=== PATIENT | female | born 1970 | race Two or more races ===

== ENCOUNTER → 2016-10-11 | Emergency (ER) | payer SELFPAY ==
[~2016-10-11] VITALS: Ht 167.6 cm; Wt 72.6 kg
--- NOTE | 2016-10-11 21:31 | Emergency Room Report ---
History of Present Illness General Chief Complaint: Syncope Source: Patient Present Illness HPI This patient presents with chief complaint of syncope. According to EMS blood pressure was low. By time she got here, she fell better after IV fluid bolus. She did not want to be seen and want to leave AMA. She was triaged and was not seen by me. Patient is competent to do so. Her daughter was with her. Allergies: Coded Allergies: No Known Allergies (Unverified , 10/11/16) Patient History Past Medical History: see triage record, old chart reviewed Past Surgical History: none Pertinent Family History: none Social History: Denies: smoking Now: No Immunizations: other Reviewed Nursing Documentation: PMH: Agreed, PSxH: Agreed Nursing Documentation-PMH Past Medical History: No Stated History Physical Exam Vital Signs Date Time Temp Pulse Resp B/P Pulse Ox O2 Delivery O2 Flow Rate FiO2 10/11/16 21:07 98.2 72 20 123/63 97 Room Air Medical Decision Making Diagnostic Impression: Primary Impression: Syncope Qualified Codes: R55 - Syncope and collapse Last Vital Signs Date Time Temp Pulse Resp B/P Pulse Ox O2 Delivery O2 Flow Rate FiO2 10/11/16 21:07 98.2 72 20 123/63 97 Room Air Status: improved Disposition: AGAINST MEDICAL ADVICE TIM GAINES M.D. Oct 11, 2016 21:31
[2016-10-11 21:32] VITALS: BP 123/63
== END | disposition left against medical advice (07) ==
LOC: EDBD 21:11 → EMR 21:20
DX: R55 Syncope and collapse (principal)
CPT/HCPCS: 99281